=== PATIENT | female | born 1995 | race African-American/Black ===

== ENCOUNTER 2016-07-15 21:45 | Emergency (ER) | payer OTHER ==
[2016-07-15 23:52] LABS: BASO # 0.1 K/mm3 (0.0-0.2); BASO % 1.2 % (0.0-1.0); EOS # 0.1 K/mm3 (0.0-0.50); EOS % 1.5 % (0.0-3.0); LARGE UNSTAINED CELL # 0.2 K/mm3 (0.0-0.4); LARGE UNSTAINED CELL % 2.6 % (0.0-4.0); LYMPH # 3.6 K/mm3 (1.5-6.5); LYMPH % 55.6 % (24.0-44.0); MEAN CORPUSCULAR HEMOGLOBIN 27.9 pg (27.0-33.0); MEAN CORPUSCULAR HGB CONC 32.8 g/dl (32.0-36.5); MEAN CORPUSCULAR VOLUME 85.1 fl (80.0-96.0); MONO # 0.3 K/mm3 (0.0-0.8); MONO % 4.2 % (0.0-5.0); NEUTROPHILS # 2.2 K/mm3 (1.8-7.7); NEUTROPHILS % 34.8 % (36.0-66.0); PLATELET COUNT, AUTOMATED 222 k/mm3 (150-450); RED CELL DISTRIBUTION WIDTH 15.7 % (11.5-14.5); WHITE BLOOD COUNT 6.2 K/mm3 (4.0-10.0)
[2016-07-16 00:02] LABS: INR 0.93
[2016-07-16 00:15] LABS: ANION GAP 8 MEQ/L (8-16); BLOOD UREA NITROGEN 7 MG/DL (7-18); CALCIUM LEVEL 8.6 MG/DL (8.5-10.1); CARBON DIOXIDE LEVEL 27 MEQ/L (21-32); CHLORIDE LEVEL 106 MEQ/L (98-107); CREATININE FOR GFR 0.72 MG/DL (0.55-1.02); GLOMERULAR FILTRATION RATE > 60.0 (>60); GLUCOSE, FASTING 94 MG/DL (70-105); SODIUM LEVEL 141 MEQ/L (136-145)
[2016-07-16 00:19] LABS: THYROXINE (T4) 8.6 UG/DL (4.5-12.0)
--- NOTE | 2016-07-16 00:37 | EDDOCDS ---
Physician Documentation [facility] Name: Mike Patricio Age: 20 yrs Sex: Female : 1995 Arrival Date: 07/15/2016 Time: 21:45 Bed I3 / M3 Private MD: Other - Complete Info On Cds Disposition: 07/16/16 00:26 Discharged to Home/Self Care. Impression: Chest pain, unspecified. - Condition is Stable. - Discharge Instructions: Nonspecific Chest Pain. - Prescriptions for Albuterol Sulfate 90 mcg/actuation Inhalation HFA Aerosol Inhaler - inhale 2 puff by INHALATION route every 4 hours As needed; 1 Inhaler. - Medication Reconciliation, Family Work Release form. - Follow up: Emergency Department; When: As needed; Reason: Worsening of conditions. Follow up: Private Physician; When: Call to arrange an appointment; Reason: Wound/Symptom Recheck, Recheck today's complaints, Worsening of conditions, Continuance of care. - Problem is an ongoing problem. - Symptoms are unchanged. Historical: - Allergies: Amoxicillin; - Home Meds: 1. propylthiouracil 50 mg Oral tab 2 tab 3 times per day - PMHx: Hyperthyroidism; Heart Murmur; - PSHx: ; - Social history: Smoking status: Patient states former smoker of tobacco. No barriers to communication noted, The patient speaks fluent Nepalese. - Family history: Not pertinent. - : The pt / caregiver states he / she is not on anticoagulants. Home medication list is obtained from the patient. - Exposure Risk Screening:: None identified. Vital Signs: 07/15 21:47 BP 127 / 71; Pulse 75; Resp 18 S; Temp 98.3(O); Pulse Ox 99% on R/A; Weight 81.65 kg / gr2 180.01 lbs (R); Height 5 ft. 5 in. (165.10 cm) (R); Pain 6/10; 07/16 00:30 BP 118 / 53; Pulse 64; Resp 18; Temp 96.8; Pulse Ox 98% ; Pain 0/10; ajs 07/15 21:47 Body Mass Index 29.95 (81.65 kg, 165.10 cm) gr2 MDM: 07/15 23:06 NS 0.9% 500 ml IV at bolus once ordered. cc10 23:06 IV Saline Lock ordered. cc10 23:06 UCG by Nursing ordered. cc10 23:07 Basic Metabolic Profile Ordered. EDMS 23:07 CBC with Diff Ordered. EDMS 23:07 Cardiac Injury Profile Ordered. EDMS 23:07 Partial Thromboplastin Time Ordered. EDMS 23:07 Prothrombin Time Profile\E\INR Ordered. EDMS 23:07 Troponin Ordered. EDMS 23:07 ECG WITH READING ER PHYS+CARDIAG ordered. EDMS 23:08 Chest, 2 View (pa\E\lat) Ordered. EDMS 23:18 Thyroid Profile Ordered. EDMS 23:25 Financial registration complete. ks16 23:25 [facility] Payment Agreement was scanned into Melinta and attached to record. ks16 23:51 D-DIMER QUANT Ordered. EDMS 07/16 00:29 CBC with Diff Reviewed. cc10 00:29 Thyroid Profile Reviewed. cc10 00:29 Basic Metabolic Profile Reviewed. cc10 00:29 Cardiac Injury Profile Reviewed. cc10 00:29 Partial Thromboplastin Time Reviewed. cc10 00:29 Prothrombin Time Profile\E\INR Reviewed. cc10 00:29 Troponin Reviewed. cc10 00:29 D-DIMER QUANT Reviewed. cc10 Point of Care Testing: Urine : 07/15 23:26 hCG Reading: Negative; Control Reading: Positive; af2 Ranges: Administered Medications: 23:49 Drug: NS 0.9% 500 ml [sodium chloride 0.9 % intravenous solution] Route: IV; Rate: ld5 bolus; Site: left antecubital; 07/16 00:34 Follow up: IV Status: Completed infusion; IV Intake: 500ml ld5 Signatures: Dispatcher [employer] EDKS Karen Osullivan,RN RN ld5 Jamshid Pearl, PA-C PA-C cc10 Stephanie PorterRN RN af2 Padmini Dunn, Reg Reg ks16 The chart was reviewed and I authenticate all verbal orders and agree with the evaluation and treatment provided.Corrections: (The following items were deleted from the chart) 07/15 23:50 23:08 D-DIMER QUANT+LAB ordered. EDMS EDMS Attachments: 23:25 [facility] Payment Agreement ks16 MTDD
--- NOTE | 2016-07-16 00:37 | EDDOCDS ---
Nurse's Notes [facility] Name: Mike Patricio Age: 20 yrs Sex: Female : 1995 Arrival Date: 07/15/2016 Time: 21:45 Bed I3 / M3 Private MD: Other - Complete Info On Cds Diagnosis: Chest pain, unspecified Presentation: 07/15 21:50 Presenting complaint: Patient states: 1) numbing sensation in arms and legs 2) chest af2 pain, intermittent 3) headache 4) pain in scar 5) pain in back where epidural was placed. Aspirin was not taken prior to arrival. Adult Sepsis Screening: The patient does not have new or worsening altered mentation. Patient's respiratory rate is less than 22. Systolic blood pressure is greater than 100. Patient has a qSOFA score of 0- Negative Sepsis Screen. Suicide/Homicide risk assessment- the patient denies having any suicidal and/or homicidal ideations and does not present with any other emotional, behavioral or mental health complaints. Status: The patient is an active duty business services specialist sales. Transition of care: patient was not received from another setting of care. 21:50 Acuity: YEE Level 3 af2 21:50 Method Of Arrival: Walkin/Carried/Asstd af2 Triage Assessment: 21:54 General: Appears in no apparent distress, Behavior is cooperative. Pain: Location: af2 chest Pain currently is 5 out of 10 on a pain scale. HIV screening NA for this visit Offered previously. Cardiovascular: Chest pain is described as Pain is 5 out of 10 on a pain scale. radiates Does not radiate. episodes are intermittent began "weeks ago". Historical: - Allergies: Amoxicillin; - Home Meds: 1. propylthiouracil 50 mg Oral tab 2 tab 3 times per day - PMHx: Hyperthyroidism; Heart Murmur; - PSHx: ; - Social history: Smoking status: Patient states former smoker of tobacco. No barriers to communication noted, The patient speaks fluent Hebrew. - Family history: Not pertinent. - : The pt / caregiver states he / she is not on anticoagulants. Home medication list is obtained from the patient. - Exposure Risk Screening:: None identified. Screenin:42 Screening information is obtained from the patient. Fall risk: No risks identified. ld5 Assistance ADL's: requires no assistance with activities of daily living. Abuse/DV Screen: The patient / caregiver reports he/she is: not in a situation that causes fear, pain or injury. Nutritional screening: No deficits noted. Advance Directives: There is no active DNR order. home support is adequate. Assessment: 23:42 General: Appears in no apparent distress, Behavior is cooperative, quiet. Pain: ld5 Location: chest Pain currently is 4 out of 10 on a pain scale. At worst was 8 out of 10 on a pain scale. Pain does not radiate. Quality of pain is described as sharp, Pain began 2 weeks ago Is intermittent. Pain: Alleviated by nothing. Aggravated by nothing. Neurological: Level of Consciousness is awake, obeys commands. Cardiovascular: Rhythm is n/a. Respiratory: Airway is patent Respiratory effort is even, unlabored. GI: Abdomen is non- distended Denies nausea, vomiting. : Denies burning with urination, pain with urination. Derm: Skin is intact, Skin is dry, Skin is normal. 07/16 00:34 General: Appears in no apparent distress, Behavior is cooperative. Pain: Pain currently ld5 is 2 out of 10 on a pain scale. Neurological: Level of Consciousness is awake, alert. Respiratory: Airway is patent Respiratory effort is even, unlabored. Vital Signs: 07/15 21:47 BP 127 / 71; Pulse 75; Resp 18 S; Temp 98.3(O); Pulse Ox 99% on R/A; Weight 81.65 kg gr2 (R); Height 5 ft. 5 in. (165.10 cm) (R); Pain 6/10; 07/16 00:30 BP 118 / 53; Pulse 64; Resp 18; Temp 96.8; Pulse Ox 98% ; Pain 0/10; ajs 07/15 21:47 Body Mass Index 29.95 (81.65 kg, 165.10 cm) gr2 Vitals: 07/15 21:47 Log In Time: July 15, 2016 at 21:47. gr2 ED Course: 21:46 Patient visited by Aldair Celaya. gr2 21:46 Patient moved to Waiting gr2 21:47 Other - Complete Info On Cds is Private Physician. gr2 21:49 Patient visited by Aldair Celaya. gr2 21:49 Patient moved to Pre RCE gr2 21:52 Triage Initiated af2 21:55 Patient visited by Stephanie Porter RN. af2 22:18 Patient moved to Triage 3 cln 22:31 Jamshid Pearl PA-C is PHCP. cc10 22:31 Tawanda Baugh DO is Attending Physician. cc10 22:37 Patient visited by Jamshid Pearl PA-C. cc10 22:37 Patient visited by Jamshid Pearl PA-C. cc10 23:13 Ananya Davis RN is Primary Nurse. af2 23:13 Patient moved to I3 / M3 af2 23:25 [facility] Payment Agreement was scanned into Leaky and attached to record. ks16 23:41 Thyroid Profile Sent. ld5 23:41 Basic Metabolic Profile Sent. ld5 23:41 CBC with Diff Sent. ld5 23:41 Cardiac Injury Profile Sent. ld5 23:41 Partial Thromboplastin Time Sent. ld5 23:41 Prothrombin Time Profile\\E\\INR Sent. ld5 23:41 Troponin Sent. ld5 23:42 The patient / caregiver is instructed regarding the plan of care and ED course. ld5 Accompanied by Significant Other, Patient has correct armband on for positive identification. Placed in gown. Bed in low position. Call light in reach. Cardiac monitoring not applicable on this patient. 23:42 Inserted saline lock: 20 gauge in left antecubital area and blood collected. The ld5 patient tolerated the procedure well. Labs drawn. (by ED staff). Sent per order to lab. 23:44 Patient visited by Karen Osullivan RN. ld5 23:48 Patient visited by Page Rivers. ajs 23:48 EKG done. (by ED staff). Reviewed by Jamshid Pearl PA-C. ajs 07/16 00:00 D-DIMER QUANT Sent. ld5 00:30 Patient visited by Page Rivers. ajs 00:34 Discontinued lock intact, bleeding controlled, pressure dressing applied, No ld5 redness/swelling at site. No procedures done that require assistance. 00:36 Patient visited by Karen Osullivan,AKANKSHA. ld5 Administered Medications: 07/15 23:49 Drug: NS 0.9% 500 ml [sodium chloride 0.9 % intravenous solution] Route: IV; Rate: ld5 bolus; Site: left antecubital; 07/16 00:34 Follow up: IV Status: Completed infusion; IV Intake: 500ml ld5 Point of Care Testing: Urine : 07/15 23:26 hCG Reading: Negative; Control Reading: Positive; af2 Ranges: Intake: 07/16 00:34 IV: 500.00ml; Total: 500.00ml. ld5 Order Results: Lab Order: Basic Metabolic Profile; SPEC'M 07/15/16 23:40 Test: GLUCOSE, FASTING; Value: 94; Range: 70-105; Units: MG/DL; Status: F Test: BLOOD UREA NITROGEN; Value: 7; Range: 7-18; Units: MG/DL; Status: F Test: CREATININE FOR GFR; Value: 0.72; Range: 0.55-1.02; Units: MG/DL; Status: F Test: GLOMERULAR FILTRATION RATE; Value: > 60.0; Range: >60; Status: F Test: SODIUM LEVEL; Value: 141; Range: 136-145; Units: MEQ/L; Status: F Test: POTASSIUM SERUM; Value: 4.0; Range: 3.5-5.1; Units: MEQ/L; Status: F Test: CHLORIDE LEVEL; Value: 106; Range: 98-107; Units: MEQ/L; Status: F Test: CARBON DIOXIDE LEVEL; Value: 27; Range: 21-32; Units: MEQ/L; Status: F Test: ANION GAP; Value: 8; Range: 8-16; Units: MEQ/L; Status: F Test: CALCIUM LEVEL; Value: 8.6; Range: 8.5-10.1; Units: MG/DL; Status: F Test Note: ; Units are mL/min/1.73 m2 Chronic Kidney Disease Staging per NKF: Stage I & II GFR >=60 Normal to Mildly Decreased Stage III GFR 30-59 Moderately Decreased Stage IV GFR 15-29 Severely Decreased Stage V GFR <15 Very Little GFR Left ESRD GFR <15 on PLUMBER APPRENTICE Lab Order: CBC with Diff; SPEC'M 07/15/16 23:40 Test: WHITE BLOOD COUNT; Value: 6.2; Range: 4.0-10.0; Units: K/mm3; Status: F Test: RED BLOOD COUNT; Value: 4.41; Range: 4.00-5.40; Units: M/mm3; Status: F Test: HEMOGLOBIN; Value: 12.3; Range: 12.0-16.0; Units: g/dl; Status: F Test: HEMATOCRIT; Value: 37.5; Range: 36.0-47.0; Units: %; Status: F Test: MEAN CORPUSCULAR VOLUME; Value: 85.1; Range: 80.0-96.0; Units: fl; Status: F Test: MEAN CORPUSCULAR HEMOGLOBIN; Value: 27.9; Range: 27.0-33.0; Units: pg; Status: F Test: MEAN CORPUSCULAR HGB CONC; Value: 32.8; Range: 32.0-36.5; Units: g/dl; Status: F Test: RED CELL DISTRIBUTION WIDTH; Value: 15.7; Range: 11.5-14.5; Abnormal: Above high normal; Units: %; Status: F Test: PLATELET COUNT, AUTOMATED; Value: 222; Range: 150-450; Units: k/mm3; Status: F Test: NEUTROPHILS %; Value: 34.8; Range: 36.0-66.0; Abnormal: Below low normal; Units: %; Status: F Test: LYMPH %; Value: 55.6; Range: 24.0-44.0; Abnormal: Above high normal; Units: %; Status: F Test: MONO %; Value: 4.2; Range: 0.0-5.0; Units: %; Status: F Test: EOS %; Value: 1.5; Range: 0.0-3.0; Units: %; Status: F Test: BASO %; Value: 1.2; Range: 0.0-1.0; Abnormal: Above high normal; Units: %; Status: F Test: LARGE UNSTAINED CELL %; Value: 2.6; Range: 0.0-4.0; Units: %; Status: F Test: NEUTROPHILS #; Value: 2.2; Range: 1.8-7.7; Units: K/mm3; Status: F Test: LYMPH #; Value: 3.6; Range: 1.5-6.5; Units: K/mm3; Status: F Test: MONO #; Value: 0.3; Range: 0.0-0.8; Units: K/mm3; Status: F Test: EOS #; Value: 0.1; Range: 0.0-0.50; Units: K/mm3; Status: F Test: BASO #; Value: 0.1; Range: 0.0-0.2; Units: K/mm3; Status: F Test: LARGE UNSTAINED CELL #; Value: 0.2; Range: 0.0-0.4; Units: K/mm3; Status: F Lab Order: Cardiac Injury Profile; [facility] 07/15/16 23:40 Test: CPK CREATINE PHOSPHOKINASE; Value: 96; Range: 26-192; Units: U/L; Status: F Test: CK-MB VALUE MASS; Value: 1.0; Range: 0.0-3.6; Units: NG/ML; Status: F Test: MB/CK RELATIVE INDEX; Value: 1.04; Range: < OR =4; Status: F Test Note: ; DIAGNOSIS CRITERIA MMB ng/ml Relative Index (RI) NON-AMI < or = 5 N/A DEGROOT ZONE > 5 < or = 4 AMI > 5 > 4 Lab Order: Partial Thromboplastin Time; [facility] 07/15/16 23:40 Test: PARTIAL THROMBOPLASTIN TIME; Value: 32.2; Range: 26.6-37.1; Units: SECONDS; Status: F Lab Order: Prothrombin Time Profile\\E\\INR; [facility] 07/15/16 23:40 Test: PROTHROMBIN TIME; Value: 12.6; Range: 12.3-14.5; Units: SECONDS; Status: F Test: INR; Value: 0.93; Status: F Test Note: ; THERAPUTIC HUMAN INR VALUES INDICATIONS NORMAL RANGES PROPHYLAXIS/TREATMENT OF: VENOUS THROMBOSIS 2.0-3.0 PULMONARY EMBOLISM 2.0-3.0 PREVENTION OF SYSTEMIC EMBOLISM FROM: TISSUE HEART VALVES 2.0-3.0 ACUTE MYOCARDIAL INFARCTION 2.0-3.0 VALVULAR HEART DISEASE 2.0-3.0 ATRIAL FIBRILLATION 2.0-3.0 MECHANICAL VALVES(HIGH RISK) 2.5-3.5 RECURRENT MYOCARDIAL INFARCTION 2.5-3.5 Lab Order: Troponin; [facility] 07/15/16 23:40 Test: TROPONIN I; Value: 0.03; Range: < 0.10; Units: NG/ML; Status: F Test Note: ; Troponin I Reference Interval for Siemens Mogi LOCI: 99th Percentile= 0.00-0.045 ng/ml Risk Stratification: <= 0.10 ng/ml Decreased Risk for Adverse Clinical Events. 0.10-1.50 ng/ml Increased Risk for Adverse Clinical Events. Evaluation of additional criterion and/or repeat testing in 2-6 hours is suggested to rule out myocardial damage. >= 1.50 ng/ml Indicative of Myocardial Injury. Lab Order: Thyroid Profile; SPEC'M 07/15/16 23:40 Test: T UPTAKE; Value: 31; Range: 30-39; Units: %; Status: F Test: THYROXINE (T4); Value: 8.6; Range: 4.5-12.0; Units: UG/DL; Status: F Test: FREE THYROXINE INDEX; Value: 2.7; Range: 1.3-4.8; Units: %; Status: F Test: THYROID STIMULATING HORMONE; Value: 0.037; Range: 0.358-3.740; Abnormal: Below low normal; Units: uIU/ML; Status: F Lab Order: D-DIMER QUANT; SPEC'M 07/15/16 23:40 Test: D-DIMER QUANT; Value: 454.3; Range: <500; Units: ng/ml; Status: F Outcome: 00:26 Discharge ordered by Provider. cc10 00:34 Discharge Assessment: Patient awake, alert and oriented x 3. No cognitive and/or ld5 functional deficits noted. Patient verbalized understanding of disposition instructions. patient administered narcotics - no. The following High Risk Discharge criteria are identified: None. Discharged to home ambulatory, with significant other. Condition: stable. Discharge instructions given to patient, significant other, Instructed on discharge instructions, follow up and referral plans. Demonstrated understanding of instructions, medications, Pt was receptive of discharge instructions/ teaching. Prescriptions given X 1. No special radiology studies were completed. Property :Personal belongings accompany Pt. 00:36 Patient left the ED. ld5 Signatures: Karen OsullivanRN RN ld5 Page Rivers Gainslee gr2 Jamshid Pearl, PA-C PA-C cc10 Stephanie Porter RN RN af2 Padmini Dunn, Reg Reg ks16 Herlinda Barrow, DIRECTOR OF BUSINESS DEVELOPMENT DIRECTOR OF BUSINESS DEVELOPMENT cln Corrections: (The following items were deleted from the chart) 07/15 23:50 23:41 D-DIMER QUANT+LAB sent. ld5 EDMS MTDD
--- NOTE | 2016-07-16 08:40 | REP ---
Clinical: Chest pain . Comparison: None . Technique: PA and lateral. Findings: The mediastinum and cardiac silhouette are normal. The lung vides are clear and without acute consolidation, effusion, or pneumothorax. The skeletal structures are intact and normal. Impression: 1. No acute cardiopulmonary process. Signed by Emil Correia MD 07/16/2016 08:31 A
--- NOTE | 2016-07-16 09:27 | ECGEPIP ---
Stationary ECG Study [facility] - ED Test Date: 2016-07-15 Pat Name: HORTENCIA ROJAS Department: Room: - Gender: F Scanning Coordinator: [facility] : 1995 Requested By: Jamshid Pearl PA-C Order Number: [id number] Reading MD: Tejal Christensen Measurements Intervals [place] Rate: 71 P: 60 ND: 195 QRS: 46 QRSD: 83 T: 2 QT: 373 QTc: 407 Interpretive Statements SINUS RHYTHM WITH SINUS ARRHYTHMIA NONSPECIFIC T-WAVE ABNORMALITY NO PRIOR FOR COMPARISON Electronically Signed On 07-16-2016 9:26:56 EST by Tejal Christensen
--- NOTE | 2016-07-18 01:37 | EDDOCDS ---
Physician Documentation [facility] Name: Mike Patricio Age: 20 yrs Sex: Female : 1995 Arrival Date: 07/15/2016 Time: 21:45 Bed I3 / M3 Private MD: Other - Complete Info On Cds Disposition: 07/16/16 00:26 Discharged to Home/Self Care. Impression: Chest pain, unspecified. - Condition is Stable. - Discharge Instructions: Nonspecific Chest Pain. - Prescriptions for Albuterol Sulfate 90 mcg/actuation Inhalation HFA Aerosol Inhaler - inhale 2 puff by INHALATION route every 4 hours As needed; 1 Inhaler. - Medication Reconciliation, Family Work Release form. - Follow up: Emergency Department; When: As needed; Reason: Worsening of conditions. Follow up: Private Physician; When: Call to arrange an appointment; Reason: Wound/Symptom Recheck, Recheck today's complaints, Worsening of conditions, Continuance of care. - Problem is an ongoing problem. - Symptoms are unchanged. Historical: - Allergies: Amoxicillin; - Home Meds: 1. propylthiouracil 50 mg Oral tab 2 tab 3 times per day - PMHx: Hyperthyroidism; Heart Murmur; - PSHx: ; - Social history: Smoking status: Patient states former smoker of tobacco. No barriers to communication noted, The patient speaks fluent Bulgarian. - Family history: Not pertinent. - : The pt / caregiver states he / she is not on anticoagulants. Home medication list is obtained from the patient. - Exposure Risk Screening:: None identified. Vital Signs: 07/15 21:47 BP 127 / 71; Pulse 75; Resp 18 S; Temp 98.3(O); Pulse Ox 99% on R/A; Weight 81.65 kg / gr2 180.01 lbs (R); Height 5 ft. 5 in. (165.10 cm) (R); Pain 6/10; 07/16 00:30 BP 118 / 53; Pulse 64; Resp 18; Temp 96.8; Pulse Ox 98% ; Pain 0/10; ajs 07/15 21:47 Body Mass Index 29.95 (81.65 kg, 165.10 cm) gr2 MDM: 07/15 23:06 NS 0.9% 500 ml IV at bolus once ordered. cc10 23:06 IV Saline Lock ordered. cc10 23:06 UCG by Nursing ordered. cc10 23:07 Basic Metabolic Profile Ordered. EDMS 23:07 CBC with Diff Ordered. EDMS 23:07 Cardiac Injury Profile Ordered. EDMS 23:07 Partial Thromboplastin Time Ordered. EDMS 23:07 Prothrombin Time Profile\E\INR Ordered. EDMS 23:07 Troponin Ordered. EDMS 23:07 ECG WITH READING ER PHYS+CARDIAG ordered. EDMS 23:08 Chest, 2 View (pa\E\lat) Ordered. EDMS 23:18 Thyroid Profile Ordered. EDMS 23:25 Financial registration complete. ks16 23:25 [facility] Payment Agreement was scanned into Vocal[employer] and attached to record. ks16 23:51 D-DIMER QUANT Ordered. EDMS 07/16 00:29 CBC with Diff Reviewed. cc10 00:29 Thyroid Profile Reviewed. cc10 00:29 Basic Metabolic Profile Reviewed. cc10 00:29 Cardiac Injury Profile Reviewed. cc10 00:29 Partial Thromboplastin Time Reviewed. cc10 00:29 Prothrombin Time Profile\E\INR Reviewed. cc10 00:29 Troponin Reviewed. cc10 00:29 D-DIMER QUANT Reviewed. cc10 11:41 T-Sheet-- Draft Copy was scanned into VocalZoom and attached to record. gb 11:42 ECG/EKG was scanned into Vocal[employer] and attached to record. Point of Care Testing: Urine : 07/15 23:26 hCG Reading: Negative; Control Reading: Positive; af2 Ranges: Administered Medications: 23:49 Drug: NS 0.9% 500 ml [sodium chloride 0.9 % intravenous solution] Route: IV; Rate: ld5 bolus; Site: left antecubital; 07/16 00:34 Follow up: IV Status: Completed infusion; IV Intake: 500ml ld5 Signatures: Dispatcher [employer] EDAK Edie Melgar, Reg Reg gb Karen Osullivan,AKANKSHA RN ld5 Jamshid Pearl PA-C PA-C cc10 Stephanie PorterRN RN af2 Padmini Dunn, Reg Reg ks16 The chart was reviewed and I authenticate all verbal orders and agree with the evaluation and treatment provided.Corrections: (The following items were deleted from the chart) 07/15 23:50 23:08 D-DIMER QUANT+LAB ordered. EDMS EDMS Attachments: 23:25 [facility] Payment Agreement ks16 07/16 11:41 T-Sheet-- Draft Copy gb 11:42 ECG/EKG gb Chart Complete MTDD
--- NOTE | 2016-07-18 01:37 | EDDOCDS ---
Nurse's Notes [facility] Name: Mike Patricio Age: 20 yrs Sex: Female : 1995 Arrival Date: 07/15/2016 Time: 21:45 Bed I3 / M3 Private MD: Other - Complete Info On Cds Diagnosis: Chest pain, unspecified Presentation: 07/15 21:50 Presenting complaint: Patient states: 1) numbing sensation in arms and legs 2) chest af2 pain, intermittent 3) headache 4) pain in scar 5) pain in back where epidural was placed. Aspirin was not taken prior to arrival. Adult Sepsis Screening: The patient does not have new or worsening altered mentation. Patient's respiratory rate is less than 22. Systolic blood pressure is greater than 100. Patient has a qSOFA score of 0- Negative Sepsis Screen. Suicide/Homicide risk assessment- the patient denies having any suicidal and/or homicidal ideations and does not present with any other emotional, behavioral or mental health complaints. 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 Transition of care: patient was not received from another setting of care. 21:50 Acuity: YEE Level 3 af2 21:50 Method Of Arrival: Walkin/Carried/Asstd af2 Triage Assessment: 21:54 General: Appears in no apparent distress, Behavior is cooperative. Pain: Location: af2 chest Pain currently is 5 out of 10 on a pain scale. HIV screening NA for this visit Offered previously. Cardiovascular: Chest pain is described as Pain is 5 out of 10 on a pain scale. radiates Does not radiate. episodes are intermittent began "weeks ago". Historical: - Allergies: Amoxicillin; - Home Meds: 1. propylthiouracil 50 mg Oral tab 2 tab 3 times per day - PMHx: Hyperthyroidism; Heart Murmur; - PSHx: ; - Social history: Smoking status: Patient states former smoker of tobacco. No barriers to communication noted, The patient speaks fluent Syriac. - Family history: Not pertinent. - : The pt / caregiver states he / she is not on anticoagulants. Home medication list is obtained from the patient. - Exposure Risk Screening:: None identified. Screenin:42 Screening information is obtained from the patient. Fall risk: No risks identified. ld5 Assistance ADL's: requires no assistance with activities of daily living. Abuse/DV Screen: The patient / caregiver reports he/she is: not in a situation that causes fear, pain or injury. Nutritional screening: No deficits noted. Advance Directives: There is no active DNR order. home support is adequate. Assessment: 23:42 General: Appears in no apparent distress, Behavior is cooperative, quiet. Pain: ld5 Location: chest Pain currently is 4 out of 10 on a pain scale. At worst was 8 out of 10 on a pain scale. Pain does not radiate. Quality of pain is described as sharp, Pain began 2 weeks ago Is intermittent. Pain: Alleviated by nothing. Aggravated by nothing. Neurological: Level of Consciousness is awake, obeys commands. Cardiovascular: Rhythm is n/a. Respiratory: Airway is patent Respiratory effort is even, unlabored. GI: Abdomen is non- distended Denies nausea, vomiting. : Denies burning with urination, pain with urination. Derm: Skin is intact, Skin is dry, Skin is normal. 07/16 00:34 General: Appears in no apparent distress, Behavior is cooperative. Pain: Pain currently ld5 is 2 out of 10 on a pain scale. Neurological: Level of Consciousness is awake, alert. Respiratory: Airway is patent Respiratory effort is even, unlabored. Vital Signs: 07/15 21:47 BP 127 / 71; Pulse 75; Resp 18 S; Temp 98.3(O); Pulse Ox 99% on R/A; Weight 81.65 kg gr2 (R); Height 5 ft. 5 in. (165.10 cm) (R); Pain 6/10; 07/16 00:30 BP 118 / 53; Pulse 64; Resp 18; Temp 96.8; Pulse Ox 98% ; Pain 0/10; ajs 07/15 21:47 Body Mass Index 29.95 (81.65 kg, 165.10 cm) gr2 Vitals: 07/15 21:47 Log In Time: July 15, 2016 at 21:47. gr2 ED Course: 21:46 Patient visited by Aldair Celaya. gr2 21:46 Patient moved to Waiting gr2 21:47 Other - Complete Info On Cds is Private Physician. gr2 21:49 Patient visited by Aldair Celaya. gr2 21:49 Patient moved to Pre RCE gr2 21:52 Triage Initiated af2 21:55 Patient visited by Stephanie Porter RN. af2 22:18 Patient moved to Triage 3 cln 22:31 Jamshid Pearl PA-C is PHCP. cc10 22:31 Tawanda Baugh DO is Attending Physician. cc10 22:37 Patient visited by Jamshid Pearl PA-C. cc10 22:37 Patient visited by Jamshid Pearl PA-C. cc10 23:13 Ananya Davis, AKANKSHA is Primary Nurse. af2 23:13 Patient moved to I3 / M3 af2 23:25 [facility] Payment Agreement was scanned into [email or web address] and attached to record. ks16 23:41 Thyroid Profile Sent. ld5 23:41 Basic Metabolic Profile Sent. ld5 23:41 CBC with Diff Sent. ld5 23:41 Cardiac Injury Profile Sent. ld5 23:41 Partial Thromboplastin Time Sent. ld5 23:41 Prothrombin Time Profile\\E\\INR Sent. ld5 23:41 Troponin Sent. ld5 23:42 The patient / caregiver is instructed regarding the plan of care and ED course. ld5 Accompanied by Significant Other, Patient has correct armband on for positive identification. Placed in gown. Bed in low position. Call light in reach. Cardiac monitoring not applicable on this patient. 23:42 Inserted saline lock: 20 gauge in left antecubital area and blood collected. The ld5 patient tolerated the procedure well. Labs drawn. (by ED staff). Sent per order to lab. 23:44 Patient visited by Karen Osullivan RN. ld5 23:48 Patient visited by Page Rivers. ajs 23:48 EKG done. (by ED staff). Reviewed by Jamshid Pearl PA-C. ajs /09 00:00 D-DIMER QUANT Sent. ld5 00:30 Patient visited by Page Rivers. ajs 00:34 Discontinued lock intact, bleeding controlled, pressure dressing applied, No ld5 redness/swelling at site. No procedures done that require assistance. 00:36 Patient visited by Karen Osullivan,AKANKSHA. ld5 09:00 Chest, 2 View (pa\\E\\lat) Returned. EDMS 09:45 EKG-ADULT Returned. EDMS 11:41 T-Sheet-- Draft Copy was scanned into [email or web address] and attached to record. gb 11:42 ECG/EKG was scanned into [email or web address] and attached to record. gb Administered Medications: 07/15 23:49 Drug: NS 0.9% 500 ml [sodium chloride 0.9 % intravenous solution] Route: IV; Rate: ld5 bolus; Site: left antecubital; 07/16 00:34 Follow up: IV Status: Completed infusion; IV Intake: 500ml ld5 Point of Care Testing: Urine : 07/15 23:26 hCG Reading: Negative; Control Reading: Positive; af2 Ranges: Intake: 07/16 00:34 IV: 500.00ml; Total: 500.00ml. ld5 Order Results: Lab Order: Basic Metabolic Profile; SPEC'M 07/15/16 23:40 Test: GLUCOSE, FASTING; Value: 94; Range: 70-105; Units: MG/DL; Status: F Test: BLOOD UREA NITROGEN; Value: 7; Range: 7-18; Units: MG/DL; Status: F Test: CREATININE FOR GFR; Value: 0.72; Range: 0.55-1.02; Units: MG/DL; Status: F Test: GLOMERULAR FILTRATION RATE; Value: > 60.0; Range: >60; Status: F Test: SODIUM LEVEL; Value: 141; Range: 136-145; Units: MEQ/L; Status: F Test: POTASSIUM SERUM; Value: 4.0; Range: 3.5-5.1; Units: MEQ/L; Status: F Test: CHLORIDE LEVEL; Value: 106; Range: 98-107; Units: MEQ/L; Status: F Test: CARBON DIOXIDE LEVEL; Value: 27; Range: 21-32; Units: MEQ/L; Status: F Test: ANION GAP; Value: 8; Range: 8-16; Units: MEQ/L; Status: F Test: CALCIUM LEVEL; Value: 8.6; Range: 8.5-10.1; Units: MG/DL; Status: F Test Note: ; Units are mL/min/1.73 m2 Chronic Kidney Disease Staging per NKF: Stage I & II GFR >=60 Normal to Mildly Decreased Stage III GFR 30-59 Moderately Decreased Stage IV GFR 15-29 Severely Decreased Stage V GFR <15 Very Little GFR Left ESRD GFR <15 on [place] Lab Order: CBC with Diff; SPEC'M 07/15/16 23:40 Test: WHITE BLOOD COUNT; Value: 6.2; Range: 4.0-10.0; Units: K/mm3; Status: F Test: RED BLOOD COUNT; Value: 4.41; Range: 4.00-5.40; Units: M/mm3; Status: F Test: HEMOGLOBIN; Value: 12.3; Range: 12.0-16.0; Units: g/dl; Status: F Test: HEMATOCRIT; Value: 37.5; Range: 36.0-47.0; Units: %; Status: F Test: MEAN CORPUSCULAR VOLUME; Value: 85.1; Range: 80.0-96.0; Units: fl; Status: F Test: MEAN CORPUSCULAR HEMOGLOBIN; Value: 27.9; Range: 27.0-33.0; Units: pg; Status: F Test: MEAN CORPUSCULAR HGB CONC; Value: 32.8; Range: 32.0-36.5; Units: g/dl; Status: F Test: RED CELL DISTRIBUTION WIDTH; Value: 15.7; Range: 11.5-14.5; Abnormal: Above high normal; Units: %; Status: F Test: PLATELET COUNT, AUTOMATED; Value: 222; Range: 150-450; Units: k/mm3; Status: F Test: NEUTROPHILS %; Value: 34.8; Range: 36.0-66.0; Abnormal: Below low normal; Units: %; Status: F Test: LYMPH %; Value: 55.6; Range: 24.0-44.0; Abnormal: Above high normal; Units: %; Status: F Test: MONO %; Value: 4.2; Range: 0.0-5.0; Units: %; Status: F Test: EOS %; Value: 1.5; Range: 0.0-3.0; Units: %; Status: F Test: BASO %; Value: 1.2; Range: 0.0-1.0; Abnormal: Above high normal; Units: %; Status: F Test: LARGE UNSTAINED CELL %; Value: 2.6; Range: 0.0-4.0; Units: %; Status: F Test: NEUTROPHILS #; Value: 2.2; Range: 1.8-7.7; Units: K/mm3; Status: F Test: LYMPH #; Value: 3.6; Range: 1.5-6.5; Units: K/mm3; Status: F Test: MONO #; Value: 0.3; Range: 0.0-0.8; Units: K/mm3; Status: F Test: EOS #; Value: 0.1; Range: 0.0-0.50; Units: K/mm3; Status: F Test: BASO #; Value: 0.1; Range: 0.0-0.2; Units: K/mm3; Status: F Test: LARGE UNSTAINED CELL #; Value: 0.2; Range: 0.0-0.4; Units: K/mm3; Status: F Lab Order: Cardiac Injury Profile; [facility] 07/15/16 23:40 Test: CPK CREATINE PHOSPHOKINASE; Value: 96; Range: 26-192; Units: U/L; Status: F Test: CK-MB VALUE MASS; Value: 1.0; Range: 0.0-3.6; Units: NG/ML; Status: F Test: MB/CK RELATIVE INDEX; Value: 1.04; Range: < OR =4; Status: F Test Note: ; DIAGNOSIS CRITERIA MMB ng/ml Relative Index (RI) NON-AMI < or = 5 N/A DEGROOT ZONE > 5 < or = 4 AMI > 5 > 4 Lab Order: Partial Thromboplastin Time; [facility] 07/15/16 23:40 Test: PARTIAL THROMBOPLASTIN TIME; Value: 32.2; Range: 26.6-37.1; Units: SECONDS; Status: F Lab Order: Prothrombin Time Profile\\E\\INR; [facility] 07/15/16 23:40 Test: PROTHROMBIN TIME; Value: 12.6; Range: 12.3-14.5; Units: SECONDS; Status: F Test: INR; Value: 0.93; Status: F Test Note: ; THERAPUTIC HUMAN INR VALUES INDICATIONS NORMAL RANGES PROPHYLAXIS/TREATMENT OF: VENOUS THROMBOSIS 2.0-3.0 PULMONARY EMBOLISM 2.0-3.0 PREVENTION OF SYSTEMIC EMBOLISM FROM: TISSUE HEART VALVES 2.0-3.0 ACUTE MYOCARDIAL INFARCTION 2.0-3.0 VALVULAR HEART DISEASE 2.0-3.0 ATRIAL FIBRILLATION 2.0-3.0 MECHANICAL VALVES(HIGH RISK) 2.5-3.5 RECURRENT MYOCARDIAL INFARCTION 2.5-3.5 Lab Order: Troponin; [facility] 07/15/16 23:40 Test: TROPONIN I; Value: 0.03; Range: < 0.10; Units: NG/ML; Status: F Test Note: ; Troponin I Reference Interval for [employer] LOCI: 99th Percentile= 0.00-0.045 ng/ml Risk Stratification: <= 0.10 ng/ml Decreased Risk for Adverse Clinical Events. 0.10-1.50 ng/ml Increased Risk for Adverse Clinical Events. Evaluation of additional criterion and/or repeat testing in 2-6 hours is suggested to rule out myocardial damage. >= 1.50 ng/ml Indicative of Myocardial Injury. Lab Order: Thyroid Profile; [facility] 07/15/16 23:40 Test: T UPTAKE; Value: 31; Range: 30-39; Units: %; Status: F Test: THYROXINE (T4); Value: 8.6; Range: 4.5-12.0; Units: UG/DL; Status: F Test: FREE THYROXINE INDEX; Value: 2.7; Range: 1.3-4.8; Units: %; Status: F Test: THYROID STIMULATING HORMONE; Value: 0.037; Range: 0.358-3.740; Abnormal: Below low normal; Units: uIU/ML; Status: F Lab Order: D-DIMER QUANT; [facility] 07/15/16 23:40 Test: D-DIMER QUANT; Value: 454.3; Range: <500; Units: ng/ml; Status: F Radiology Order: Chest, 2 View (pa\\E\\lat) Test: Chest, 2 View (pa\\E\\lat) REASON FOR EXAMINATION: Chest Pain; Clinical: Chest pain .; ; Comparison: None .; ; Technique: PA and lateral.; ; Findings:; The mediastinum and cardiac silhouette are normal. The lung vides are clear and; without acute consolidation, effusion, or pneumothorax. The skeletal structures; are intact and normal.; ; Impression:; 1. No acute cardiopulmonary process.; ; ; Signed by; Emil Correia MD 07/16/2016 08:31 A; Radiology Order: EKG-ADULT Test: EKG-ADULT REASON FOR EXAMINATION: Chest Pain; Stationary ECG Study; [facility] - ED; ; Test Date: 2016-07-15; Pat Name: MIKE PATRICIO Department:; Room: -; Gender: F School Health Assistant: asl; : 1995 Requested By: Jamshid Pearl PA-C; Order Number: [id number] Reading MD: Tejal Christensen; Measurements; Intervals [place]; Rate: 71 P: 60; IA: 195 QRS: 46; QRSD: 83 T: 2; QT: 373; QTc: 407; Interpretive Statements; SINUS RHYTHM WITH SINUS ARRHYTHMIA; NONSPECIFIC T-WAVE ABNORMALITY; NO PRIOR FOR COMPARISON; Electronically Signed On 07-16-2016 9:26:56 EST by Tejal Christensen; Outcome: 00:26 Discharge ordered by Provider. cc10 00:34 Discharge Assessment: Patient awake, alert and oriented x 3. No cognitive and/or ld5 functional deficits noted. Patient verbalized understanding of disposition instructions. patient administered narcotics - no. The following High Risk Discharge criteria are identified: None. Discharged to home ambulatory, with significant other. Condition: stable. Discharge instructions given to patient, significant other, Instructed on discharge instructions, follow up and referral plans. Demonstrated understanding of instructions, medications, Pt was receptive of discharge instructions/ teaching. Prescriptions given X 1. No special radiology studies were completed. Property :Personal belongings accompany Pt. 00:36 Patient left the ED. ld5 Signatures: Dispatcher [employer] EDMS Edie Melgar, Reg Reg gb Karen OsullivanRN RN ld5 Page Rivers Gainslee gr2 Jamshid Pearl PA-C PA-C cc10 Stephanie Porter RN RN af2 Padmini Dunn, Reg Reg ks16 Herlinda Barrow, [employer] cln Corrections: (The following items were deleted from the chart) 07/15 23:50 23:41 D-DIMER QUANT+LAB sent. ld5 EDMS Chart Complete MTDD
--- NOTE | 2016-07-18 01:37 | EDDOCDS ---
Physician Documentation [facility] Name: Mike Patricio Age: 20 yrs Sex: Female : 1995 Arrival Date: 07/15/2016 Time: 21:45 Bed I3 / M3 Private MD: Other - Complete Info On Cds Disposition: 07/16/16 00:26 Discharged to Home/Self Care. Impression: Chest pain, unspecified. - Condition is Stable. - Discharge Instructions: Nonspecific Chest Pain. - Prescriptions for Albuterol Sulfate 90 mcg/actuation Inhalation HFA Aerosol Inhaler - inhale 2 puff by INHALATION route every 4 hours As needed; 1 Inhaler. - Medication Reconciliation, Family Work Release form. - Follow up: Emergency Department; When: As needed; Reason: Worsening of conditions. Follow up: Private Physician; When: Call to arrange an appointment; Reason: Wound/Symptom Recheck, Recheck today's complaints, Worsening of conditions, Continuance of care. - Problem is an ongoing problem. - Symptoms are unchanged. Historical: - Allergies: Amoxicillin; - Home Meds: 1. propylthiouracil 50 mg Oral tab 2 tab 3 times per day - PMHx: Hyperthyroidism; Heart Murmur; - PSHx: ; - Social history: Smoking status: Patient states former smoker of tobacco. No barriers to communication noted, The patient speaks fluent Moldovan. - Family history: Not pertinent. - : The pt / caregiver states he / she is not on anticoagulants. Home medication list is obtained from the patient. - Exposure Risk Screening:: None identified. Vital Signs: 07/15 21:47 BP 127 / 71; Pulse 75; Resp 18 S; Temp 98.3(O); Pulse Ox 99% on R/A; Weight 81.65 kg / gr2 180.01 lbs (R); Height 5 ft. 5 in. (165.10 cm) (R); Pain 6/10; 07/16 00:30 BP 118 / 53; Pulse 64; Resp 18; Temp 96.8; Pulse Ox 98% ; Pain 0/10; ajs 07/15 21:47 Body Mass Index 29.95 (81.65 kg, 165.10 cm) gr2 MDM: 07/15 23:06 NS 0.9% 500 ml IV at bolus once ordered. cc10 23:06 IV Saline Lock ordered. cc10 23:06 UCG by Nursing ordered. cc10 23:07 Basic Metabolic Profile Ordered. EDMS 23:07 CBC with Diff Ordered. EDMS 23:07 Cardiac Injury Profile Ordered. EDMS 23:07 Partial Thromboplastin Time Ordered. EDMS 23:07 Prothrombin Time Profile\E\INR Ordered. EDMS 23:07 Troponin Ordered. EDMS 23:07 ECG WITH READING ER PHYS+CARDIAG ordered. EDMS 23:08 Chest, 2 View (pa\E\lat) Ordered. EDMS 23:18 Thyroid Profile Ordered. EDMS 23:25 Financial registration complete. ks16 23:25 [facility] Payment Agreement was scanned into [employer] and attached to record. ks16 23:51 D-DIMER QUANT Ordered. EDMS 07/16 00:29 CBC with Diff Reviewed. cc10 00:29 Thyroid Profile Reviewed. cc10 00:29 Basic Metabolic Profile Reviewed. cc10 00:29 Cardiac Injury Profile Reviewed. cc10 00:29 Partial Thromboplastin Time Reviewed. cc10 00:29 Prothrombin Time Profile\E\INR Reviewed. cc10 00:29 Troponin Reviewed. cc10 00:29 D-DIMER QUANT Reviewed. cc10 11:41 T-Sheet-- Draft Copy was scanned into [employer] and attached to record. gb 11:42 ECG/EKG was scanned into [employer] and attached to record. Point of Care Testing: Urine : 07/15 23:26 hCG Reading: Negative; Control Reading: Positive; af2 Ranges: Administered Medications: 23:49 Drug: NS 0.9% 500 ml [sodium chloride 0.9 % intravenous solution] Route: IV; Rate: ld5 bolus; Site: left antecubital; 07/16 00:34 Follow up: IV Status: Completed infusion; IV Intake: 500ml ld5 Signatures: Dispatcher [employer] EDND Edie Melgar, Reg Reg gb Karen Osullivan,AKANKSHA RN ld5 Jamshid Peral PA-C PA-C cc10 Stephanie PorterRN RN af2 Padmini Dunn, Reg Reg ks16 The chart was reviewed and I authenticate all verbal orders and agree with the evaluation and treatment provided.Corrections: (The following items were deleted from the chart) 07/15 23:50 23:08 D-DIMER QUANT+LAB ordered. EDMS EDMS Attachments: 23:25 [facility] Payment Agreement ks16 07/16 11:41 T-Sheet-- Draft Copy gb 11:42 ECG/EKG gb Chart Complete MTDD
== END 2016-07-16 00:36 | disposition home or self-care (01) ==
LOC: M ED 21:45
DX: R07.89 Other chest pain (principal); E03.9 Hypothyroidism, unspecified; R01.1 Cardiac murmur, unspecified; Z87.891 Personal history of nicotine dependence; Z79.899 Other long term (current) drug therapy; Z88.0 Allergy status to penicillin